=== PATIENT | male | born 1985 | race African-American/Black ===

== ENCOUNTER 2016-06-16 19:19 | Emergency (ER) | payer SELFPAY ==
[2016-06-21 12:03] LABS: CHLAMYDIA TRACH Equivocal (Not Detected); N GONOR Not Detected (Not Detected)
== END 2016-06-16 19:25 | disposition home or self-care (01) ==
LOC: CFTX 19:19
DX: Z20.2 Contact with and (suspected) exposure to infections with a predominantly sexual mode of transmission (principal)
CPT/HCPCS: 87491; 87591; 99282